=== PATIENT | female | born 1935 | race Caucasian/White ===

== ENCOUNTER → 2017-06-19 | Outpatient (CLI) | payer MEDICARE, BC ==
[~2017-06-19] MED LIST: ACET-1600 PO; CALC300T5 PO; CETI10CA PO; DIPH-423 PO; FAMO-79 PO; FLUT9.9S NS; HYDR-3237 PO; MECL-76 PO; MULT-123 PO; OMEP-110 PO; OMEP20TA62 PO; OMEP40CA6 PO; OXYC5CAP2 PO; OXYM15SP8 NAS; POLY17PO3 PO
== END | disposition home or self-care (01) ==
LOC: CVU 13:33
PROVIDERS: ATTEND Internal Medicine Cardiovascular Disease
DX: R60.0 Localized edema (principal); I42.9 Cardiomyopathy, unspecified; I27.0 Primary pulmonary hypertension
CPT/HCPCS: 93306; 93970

== ENCOUNTER → 2017-12-07 | Outpatient (CLI) | payer MEDICARE | END | disposition home or self-care (01) | LOC: EDSTATUS 11-28 15:00 → CFH 14:23 | PROVIDERS: ATTEND Nurse Practitioner | DX: Z12.31 Encounter for screening mammogram for malignant neoplasm of breast (principal) | CPT/HCPCS: 77063; 77067 ==

== ENCOUNTER 2018-12-29 12:24 | Inpatient (IN) | payer MEDICARE ==
[~2018-12-29] VITALS: Ht 152.4 cm; Wt 68.1 kg
[~2018-12-29 12:24] MED LIST changes: +POLY17PO29 PO; -POLY17PO3 PO
[2018-12-29] MEDS ORDERED: PIPERACILLIN/TAZO/PMX 3.375GM 50 ML IVPB ONE (13:00)
[2018-12-29] MEDS ORDERED: PLEASE ENTER HEIGHT AND WEIGHT MC SCH (13:00)
[2018-12-29] MEDS ORDERED: SODIUM CHLORIDE FLUSH 10ML SYR IVF ONE (13:00)
[2018-12-29] MEDS ORDERED: HYDROcodone/APAP 5/325 TABLET PO ONE (13:00)
--- NOTE | 2018-12-29 13:09 | NUR ---
Patient brought in by EMS with reported ground level fall two days ago without known injury, right forearm pain beginning this morning and worsening over the day. IV started by EMS prior to arrival, fentanyl 100mcg administered prior to arrival. No deformity noted to right forearm. Patient is noted to have erythema, edema and warmth to left lower extremity but does not complain of this during triage. Upon arrival patient is drowsy, arouses easily to voice. Continuous blood pressure, SPO2 and cardiac monitoring in place. Report to patient's primary nurse, Katerin.
[2018-12-29] MEDS ORDERED: PIPERACILLIN/TAZO/PMX 3.375GM 50 ML ONE (13:10)
[2018-12-29] MEDS ORDERED: HYDROcodone/APAP 5/325 TABLET ONE (13:11)
[2018-12-29 13:15] LABS: MEAN CORPUSCULAR HEMOGLOBIN 31.8 pg (27.0-34.8); MEAN CORPUSCULAR VOLUME 93.4 fL (80-100); MEAN PLATELET VOLUME 8.6 fL (7.4-10.4); PLATELET COUNT 138 x10^3/uL (130-400); RED CELL DISTRIBUTION WIDTH 14.9 % (9.6-15.2)
--- NOTE | 2018-12-29 13:20 | NUR ---
Pt medicated per MAR and positioned for comfort in bed with warm blanket. Pt given water to drink per request. Pt denies other needs at this time.
[2018-12-29 13:23] LABS: ALANINE AMINOTRANSFERASE 87 U/L (12-78); ALBUMIN 2.8 g/dL (3.4-5.0); ANION GAP 9 mmol/L (5-15); CALCIUM 8.6 mg/dL (8.5-10.1); CHLORIDE 101 mmol/L (98-107); CREATININE 1.43 mg/dL (0.55-1.02)
[2018-12-29] MEDS ORDERED: IPRA15SP NAS (13:29)
[2018-12-29] MEDS ORDERED: FURO20TA3 PO (13:29)
[2018-12-29] MEDS ORDERED: GUAI400T66 PO (13:29)
[2018-12-29] MEDS ORDERED: ENAL5TAB PO (13:29)
[2018-12-29 13:33] LABS: ALKALINE PHOSPHATASE 60 U/L (45-117); BILIRUBIN,TOTAL 0.6 mg/dL (0.2-1.0); TOTAL PROTEIN 6.7 g/dL (6.4-8.2)
[2018-12-29 13:45] LABS: MD YES
[2018-12-29 13:54] LABS: <PLATELET ESTIMATE> ADEQUATE; <PLT MORPHOLOGY> NORMAL PLT MORPH; <RBC MORPHOLOGY> NORMAL; LYMPH#(MANUAL) 1.61 x10^3/uL (1-3.4); LYMPHS% (MANUAL) 14 % (22-44); MONOS#(MANUAL) 1.38 x10^3/uL (0.3-2.7); MONOS% (MANUAL) 12 % (2-9); SEG#(MANUAL) 8.51 x10^3/uL (1.8-6.8); SEGS% (MANUAL) 74 % (42-75)
--- NOTE | 2018-12-29 14:30 | NUR ---
Pt positioned for comfort in bed, denies other needs. Pt states pain improved after medications given, denies other needs.
--- NOTE | 2018-12-29 14:49 | NUR ---
Report called to Ana BRIZUELA on [address]. Floor ready for pt transport.
[2018-12-29 15:07] VITALS: BP 96/63
[2018-12-29] MEDS ORDERED: ZOLPIDEM 5MG TABLET PO PRN (16:30)
[2018-12-29] MEDS ORDERED: LORazepam 1MG TABLET PO PRN (16:30)
[2018-12-29] MEDS ORDERED: VANCOMYCIN PER PHARMACY MC SCH (16:30)
[2018-12-29] MEDS ORDERED: PROMETHAZINE 12.5 MG SUPP PR PRN (16:30)
[2018-12-29] MEDS ORDERED: BISACODYL 10 MG SUPP PR PRN (16:30)
[2018-12-29] MEDS ORDERED: NAFCILLIN 2 GM in DEXTROSE 5% 100 ML IV SCH (16:30)
[2018-12-29] MEDS ORDERED: PROMETHAZINE 25 MG/ML, 1ML IM PRN (16:30)
[2018-12-29] MEDS ORDERED: HEPARIN 5,000 UNITS/ML, 1ML ONE (17:06)
[2018-12-29] MEDS: SODIUM CHLORIDE 0.9% 1,000 ML IV SCH (17:13)
[2018-12-29] MEDS: HEPARIN 5,000 UNITS/ML, 1ML SQ SCH (17:13)
[2018-12-29 17:23] LABS: HCT (SEDRATE) 41.1 % (34.6-47.8)
[2018-12-29] MEDS ORDERED: PHARMACOKINETIC MONITORING MC PRN (17:30)
[2018-12-29] MEDS ORDERED: PHARMACOKINETIC CONSULTATION MC ONE (17:30)
[2018-12-29] MEDS: AMPICILLIN/SULBACTAM 1,500 MG in SODIUM CHLORIDE 0.9% 50 ML IV SCH (18:01)
[2018-12-29 18:51] VITALS: BP 106/61
[2018-12-29] MEDS: VANCOMYCIN 1,300 MG in SODIUM CHLORIDE 0.9% 250 ML IV SCH (20:35)
[2018-12-29 21:08] LABS: CULTURE INDICATED? YES; MICROSCOPIC INDICATED
[2018-12-30] MEDS: HEPARIN 5,000 UNITS/ML, 1ML SQ SCH ×3 (01:32→18:01)
[2018-12-30] MEDS: AMPICILLIN/SULBACTAM 1,500 MG in SODIUM CHLORIDE 0.9% 50 ML IV SCH ×3 (01:32→18:02)
[2018-12-30] MEDS: SODIUM CHLORIDE 0.9% 1,000 ML IV SCH ×3 (02:18→21:09)
[2018-12-30 04:26] VITALS: BP 124/69
[2018-12-30 06:24] LABS: MEAN CORPUSCULAR HEMOGLOBIN 31.6 pg (27.0-34.8); MEAN CORPUSCULAR VOLUME 93.2 fL (80-100); MEAN PLATELET VOLUME 8.5 fL (7.4-10.4); PLATELET COUNT 132 x10^3/uL (130-400); RED BLOOD COUNT 3.93 x10^6/uL (3.82-5.3); RED CELL DISTRIBUTION WIDTH 14.8 % (9.6-15.2)
[2018-12-30 06:33] LABS: ANION GAP 9 mmol/L (5-15); CALCIUM 8.3 mg/dL (8.5-10.1); CHLORIDE 104 mmol/L (98-107); CREATININE 0.87 mg/dL (0.55-1.02)
[2018-12-30 08:07] VITALS: BP 103/65
[2018-12-30 08:09] LABS: BASOPHILS # (AUTO) 0.01 x10^3/uL (0-0.1); BASOPHILS % (AUTO) 0 % (0-1); EOSINOPHILS % (AUTO) 0 % (1-7); LYMPHOCYTES # (AUTO) 0.35 x10^3/uL (1-3.4); LYMPHOCYTES % (AUTO) 3 % (22-44); MD SCAN; MONOCYTES # (AUTO) 0.39 x10^3/uL (0.2-0.8); MONOCYTES % (AUTO) 4 % (2-9); NEUTROPHILS # (AUTO) 10.02 x10^3/uL (1.8-6.8); NEUTROPHILS % (AUTO) 93 % (42-75)
[2018-12-30 14:10] VITALS: BP 110/62
[2018-12-30 18:38] VITALS: BP 121/79
[2018-12-30] MEDS: VANCOMYCIN 1,300 MG in SODIUM CHLORIDE 0.9% 250 ML IV SCH (21:05)
[2018-12-31 01:10] VITALS: BP 123/70
[2018-12-31] MEDS: HEPARIN 5,000 UNITS/ML, 1ML SQ SCH ×3 (01:41→17:00)
[2018-12-31] MEDS: AMPICILLIN/SULBACTAM 1,500 MG in SODIUM CHLORIDE 0.9% 50 ML IV SCH ×3 (01:41→17:37)
[2018-12-31 04:52] LABS: BASOPHILS % (AUTO) 0 % (0-1); EOSINOPHILS % (AUTO) 0 % (1-7); LYMPHOCYTES # (AUTO) 0.42 x10^3/uL (1-3.4); LYMPHOCYTES % (AUTO) 5 % (22-44); MD NO; MEAN CORPUSCULAR HEMOGLOBIN 31.8 pg (27.0-34.8); MEAN CORPUSCULAR HGB CONC 34.2 g/dL (32.4-35.8); MEAN CORPUSCULAR VOLUME 92.8 fL (80-100); MEAN PLATELET VOLUME 7.7 fL (7.4-10.4); MONOCYTES # (AUTO) 0.42 x10^3/uL (0.2-0.8); MONOCYTES % (AUTO) 5 % (2-9); NEUTROPHILS # (AUTO) 8.14 x10^3/uL (1.8-6.8); NEUTROPHILS % (AUTO) 91 % (42-75); PLATELET COUNT 135 x10^3/uL (130-400); RED BLOOD COUNT 3.94 x10^6/uL (3.82-5.3)
[2018-12-31 05:06] LABS: ANION GAP 6 mmol/L (5-15); CALCIUM 8.4 mg/dL (8.5-10.1); CHLORIDE 104 mmol/L (98-107); CREATININE 0.62 mg/dL (0.55-1.02)
[2018-12-31 07:47] VITALS: BP 124/85
[2018-12-31] MEDS: SODIUM CHLORIDE 0.9% 1,000 ML IV SCH ×2 (10:48→15:21)
[2018-12-31] MEDS: KETOCONAZOLE CRM 2%, 15GM TP SCH (10:48)
[2018-12-31 12:50] VITALS: BP 124/74
[2018-12-31] MEDS ORDERED: POTASSIUM CHLORIDE 20 MEQ in SODIUM CHLORIDE 0.9% 250 ML IV ONE (17:00)
[2018-12-31] MEDS: OXYcodone/APAP 5/325MG TABLET PO PRN (17:00)
[2018-12-31 19:41] VITALS: BP 108/56
[2018-12-31] MEDS: VANCOMYCIN 1,300 MG in SODIUM CHLORIDE 0.9% 250 ML IV SCH (21:14)
[2019-01-01 01:14] VITALS: BP 120/65
[2019-01-01] MEDS: HEPARIN 5,000 UNITS/ML, 1ML SQ SCH ×3 (01:30→17:30)
[2019-01-01] MEDS: AMPICILLIN/SULBACTAM 1,500 MG in SODIUM CHLORIDE 0.9% 50 ML IV SCH ×3 (01:41→17:30)
[2019-01-01 05:03] LABS: BASOPHILS # (AUTO) 0.01 x10^3/uL (0-0.1); BASOPHILS % (AUTO) 0 % (0-1); EOSINOPHILS # (AUTO) 0.02 x10^3/uL (0-0.4); EOSINOPHILS % (AUTO) 0 % (1-7); LYMPHOCYTES # (AUTO) 0.46 x10^3/uL (1-3.4); LYMPHOCYTES % (AUTO) 6 % (22-44); MD NO; MEAN CORPUSCULAR HEMOGLOBIN 32.4 pg (27.0-34.8); MEAN CORPUSCULAR VOLUME 92.4 fL (80-100); MEAN PLATELET VOLUME 7.8 fL (7.4-10.4); MONOCYTES # (AUTO) 0.37 x10^3/uL (0.2-0.8); MONOCYTES % (AUTO) 5 % (2-9); NEUTROPHILS # (AUTO) 6.45 x10^3/uL (1.8-6.8); NEUTROPHILS % (AUTO) 88 % (42-75); PLATELET COUNT 181 x10^3/uL (130-400); RED CELL DISTRIBUTION WIDTH 14.8 % (9.6-15.2)
[2019-01-01 05:15] LABS: ANION GAP 6 mmol/L (5-15); CALCIUM 8.1 mg/dL (8.5-10.1); CHLORIDE 105 mmol/L (98-107); CREATININE 0.57 mg/dL (0.55-1.02)
[2019-01-01 07:11] VITALS: BP 124/70
[2019-01-01] MEDS: KETOCONAZOLE CRM 2%, 15GM TP SCH (08:35)
[2019-01-01] MEDS: OXYcodone/APAP 5/325MG TABLET PO PRN ×2 (08:36→20:00)
[2019-01-01 13:09] VITALS: BP 127/72
[2019-01-01] MEDS ORDERED: CALCIUM CARBONATE 500 MG TAB.CHEW PO PRN (20:30)
[2019-01-01] MEDS: VANCOMYCIN 1,300 MG in SODIUM CHLORIDE 0.9% 250 ML IV SCH (21:50)
[2019-01-01 23:47] VITALS: BP 131/69
[2019-01-02 01:25] VITALS: BP 136/75
[2019-01-02] MEDS: AMPICILLIN/SULBACTAM 1,500 MG in SODIUM CHLORIDE 0.9% 50 ML IV SCH ×2 (02:06→09:27)
[2019-01-02] MEDS: HEPARIN 5,000 UNITS/ML, 1ML SQ SCH ×3 (02:06→17:41)
[2019-01-02 06:07] LABS: ANION GAP 6 mmol/L (5-15); CALCIUM 8.2 mg/dL (8.5-10.1); CHLORIDE 103 mmol/L (98-107); CREATININE 0.64 mg/dL (0.55-1.02)
[2019-01-02 06:14] LABS: BASOPHILS % (AUTO) 0 % (0-1); EOSINOPHILS # (AUTO) 0.09 x10^3/uL (0-0.4); EOSINOPHILS % (AUTO) 1 % (1-7); LYMPHOCYTES # (AUTO) 0.65 x10^3/uL (1-3.4); LYMPHOCYTES % (AUTO) 7 % (22-44); MD NO; MEAN CORPUSCULAR HEMOGLOBIN 30.9 pg (27.0-34.8); MEAN CORPUSCULAR HGB CONC 33.4 g/dL (32.4-35.8); MEAN CORPUSCULAR VOLUME 92.7 fL (80-100); MEAN PLATELET VOLUME 7.2 fL (7.4-10.4); MONOCYTES # (AUTO) 0.59 x10^3/uL (0.2-0.8); MONOCYTES % (AUTO) 7 % (2-9); NEUTROPHILS % (AUTO) 85 % (42-75); PLATELET COUNT 286 x10^3/uL (130-400); RED CELL DISTRIBUTION WIDTH 14.6 % (9.6-15.2)
[2019-01-02] MEDS: OXYcodone/APAP 5/325MG TABLET PO PRN (07:42)
[2019-01-02 08:00] VITALS: BP 131/61
[2019-01-02] MEDS: KETOCONAZOLE CRM 2%, 15GM TP SCH (09:27)
[2019-01-02 13:52] VITALS: BP 118/74
[2019-01-02] MEDS ORDERED: CALC200T24 PO (15:20)
[2019-01-02] MEDS ORDERED: AMPI1.5V IV (15:20)
[2019-01-02] MEDS ORDERED: HEPA50002 SQ (15:20)
[2019-01-02] MEDS ORDERED: BISA10SU54 PR (15:20)
[2019-01-02] MEDS ORDERED: Vancomycin Per Pharmacy MC (15:20)
[2019-01-02] MEDS ORDERED: KETO15CR2 TP (15:20)
[2019-01-02] MEDS ORDERED: VANCOMYCIN 1,200 MG in SODIUM CHLORIDE 0.9% 250 ML IV SCH (16:00)
[2019-01-02] MEDS ORDERED: AMPICILLIN/SULBACTAM 1,500 MG in SODIUM CHLORIDE 0.9% 50 ML IV SCH (18:00)
== END 2019-01-02 19:15 | DRG 602 ==
LOC: ED 14:53 → 4NOR 14:59 → EDIP 15:15 → ED 15:15 → 4NOR 15:23
PROVIDERS: ADMIT Hospitalist; ATTEND Hospitalist
DX: L03.116 Cellulitis of left lower limb (principal); N17.0 Acute kidney failure with tubular necrosis; E87.1 Hypo-osmolality and hyponatremia; I42.9 Cardiomyopathy, unspecified; R74.0 Nonspecific elevation of levels of transaminase and lactic acid dehydrogenase [LDH]; E86.0 Dehydration; E87.6 Hypokalemia; I27.20 Pulmonary hypertension, unspecified; K21.9 Gastro-esophageal reflux disease without esophagitis; M11.20 Other chondrocalcinosis, unspecified site; M19.031 Primary osteoarthritis, right wrist; M41.9 Scoliosis, unspecified
CPT/HCPCS: 36415; 71045; 74176; 80048; 80053; 80202; 81001; 83605; 83880; 84443; 84550; 85025; 85651; 87040; 87086; 93005; 93306; 93970; 96365; 96366; G0378; J1644; J2543; J2550; J3370; J3480; J0295; J7030; J7050

== ENCOUNTER → 2019-01-03 | Outpatient (CLI) | payer MEDICARE ==
[~2019-01-03] MED LIST changes: +AMPI1.5V IV; +BISA10SU54 PR; +CALC200T24 PO; +ENAL5TAB PO; +FURO20TA3 PO; +GUAI400T66 PO; +HEPA50002 SQ; +IPRA15SP NAS; +KETO15CR2 TP; +Vancomycin Per Pharmacy MC
== END | disposition home or self-care (01) ==
LOC: RAD 15:06
PROVIDERS: ATTEND Family Medicine
DX: Z45.2 Encounter for adjustment and management of vascular access device (principal); L03.113 Cellulitis of right upper limb
CPT/HCPCS: 36573; C1751

== ENCOUNTER 2019-04-23 11:23 | Outpatient (CLI) | payer MEDICARE | END 2019-04-23 23:59 | disposition home or self-care (01) | LOC: RAD 11:23 | PROVIDERS: ATTEND Family Medicine | DX: R59.1 Generalized enlarged lymph nodes (principal) | CPT/HCPCS: 38505; 76942; 88305; 88341; 88342 ==

== ENCOUNTER 2020-07-24 15:37 | Emergency (ER) | payer MEDICARE ==
[~2020-07-24] VITALS: Ht 149.9 cm; Wt 76.8 kg
[~2020-07-24 15:37] MED LIST changes: +ACET325T14 PO; -ENAL5TAB PO; +ENAL5TAB10 PO; -GUAI400T66 PO; +GUAI400T81 PO; +KETO15CR17 TP; -KETO15CR2 TP; +MULT-449 PO; +OMEP40CA42 PO; -OMEP40CA6 PO; +POTA10TA31 PO; +[UNRECOGNIZED DRUG - OTHER] PO
--- NOTE | 2020-07-24 16:01 | NUR ---
MANAGER RECOVERY: TO TO GO TO RADIOLOGY THEN TO ROOM VIA W/C
[2020-07-24 16:21] LABS: MICROSCOPIC INDICATED
--- NOTE | 2020-07-24 16:32 | NUR ---
THIS IS AN 85 YO FEMALE COMING IN FOR LEFT SIDED FLANK PAIN X1 DAY, DENIES N/V, DENIES DYSURIA OR HEMATURIA. DENIES ABD PAIN. NO OTHER COMPLAINTS AT THIS TIME, LEFT FLANK TENDER TO PALPATION. A&OX4, EQUAL STRENGTH IN ALL EXTREMITIES, STRONG PULSES THROUGHOUT. VSS, MONITORING IN PLACE, NADN
--- NOTE | 2020-07-24 16:39 | NUR ---
[employer] SALES DIRECTOR TO ROOM
--- NOTE | 2020-07-24 17:05 | NUR ---
RECEIVED REPORT FROM CHATA MENDOZA. PT RESTING ON ARCHIELISA.
[2020-07-24 17:09] LABS: ALANINE AMINOTRANSFERASE 25 U/L (12-78); ALBUMIN 3.7 g/dL (3.4-5.0); ANION GAP 4 mmol/L (5-15); CALCIUM 9.1 mg/dL (8.5-10.1); CHLORIDE 108 mmol/L (98-107); CREATININE 0.94 mg/dL (0.55-1.02)
[2020-07-24 17:11] LABS: ALKALINE PHOSPHATASE 73 U/L (45-117); BILIRUBIN,TOTAL 0.3 mg/dL (0.2-1.0); TOTAL PROTEIN 6.7 g/dL (6.4-8.2)
[2020-07-24 17:12] LABS: BASOPHILS % (AUTO) 1 % (0-1); EOSINOPHILS % (AUTO) 2 % (1-7); LYMPHOCYTES % (AUTO) 20 % (22-44); MEAN CORPUSCULAR HGB CONC 32.5 g/dL (32.4-35.8); MEAN PLATELET VOLUME 7.9 fL (7.4-10.4); MONOCYTES % (AUTO) 7 % (2-9); NEUTROPHILS % (AUTO) 71 % (42-75); PLATELET COUNT 199 x10^3/uL (130-400); RED BLOOD COUNT 4.18 x10^6/uL (3.82-5.3); RED CELL DISTRIBUTION WIDTH 14.4 % (9.6-15.2)
[2020-07-24 17:15] LABS: MD NO
--- NOTE | 2020-07-24 17:16 | NUR ---
PT CHART REVIEWED AND PLACED FOR RECHECK.
[2020-07-24 17:43] VITALS: BP 137/74
--- NOTE | 2020-07-24 17:44 | NUR ---
PT RESTING ON GURNEY. NADN. SAGASTUME.
== END 2020-07-24 17:54 | disposition home or self-care (01) ==
LOC: ED 17:09
DX: R10.9 Unspecified abdominal pain (principal); I10 Essential (primary) hypertension; R35.0 Frequency of micturition; R39.15 Urgency of urination; M54.5 Low back pain
CPT/HCPCS: 36415; 72110; 74176; 80053; 81001; 85025; 87077; 87086; 87186; 99285

== ENCOUNTER → 2020-09-14 | Outpatient (CLI) | payer MEDICARE | END | disposition home or self-care (01) | LOC: RAD 11:16 | PROVIDERS: ATTEND Orthopaedic Surgery | DX: M51.36 Other intervertebral disc degeneration, lumbar region (principal); M41.86 Other forms of scoliosis, lumbar region; M48.061 Spinal stenosis, lumbar region without neurogenic claudication; M25.78 Osteophyte, vertebrae | CPT/HCPCS: 72110 ==